=== PATIENT | female | born 1965 | race Caucasian/White ===

== ENCOUNTER 2018-10-04 18:17 | Emergency (ER) | payer SELFPAY ==
[~2018-10-04] VITALS: Ht 165.1 cm; Wt 66.0 kg
[2018-10-04 18:20] VITALS: BP 140/75
--- NOTE | 2018-10-04 18:26 | NUR ---
PT AMBULATED TO BED 02.
--- NOTE | 2018-10-04 18:57 | NUR ---
PT HAS RT THIRD FINGER REDNESS AND SWELLING WITH SOME FLUID OOZING OUT FROM THE SITE. PAIN 4/10 , PAIN TO TOUCH, DENEIS MEDCALL HX. NO KNOWN ALLERGIES. ER MD TO SEE THE PT.
--- NOTE | 2018-10-04 19:06 | NUR ---
bedside report given to pm rn. pt stable .
--- NOTE | 2018-10-04 19:07 | NUR ---
REPORT RECEIVED FROM MELA JURADO. TRANSFER OF CARE AT THIS TIME.
== END 2018-10-04 19:30 | disposition home or self-care (01) ==
LOC: MED 18:17
DX: L03.012 Cellulitis of left finger (principal)
CPT/HCPCS: 99283

== ENCOUNTER 2021-09-06 20:44 | Emergency (ER) | payer MEDICAID ==
[~2021-09-06] VITALS: Ht 162.6 cm; Wt 67.1 kg
--- NOTE | 2021-09-06 21:34 | NUR ---
PT TAKEN TO CHAIR A
--- NOTE | 2021-09-06 21:36 | NUR ---
DR. SILVA EVALUATING PT
[2021-09-06 21:48] VITALS: BP_SYST 128; BP_SYST 159; BP_DIAS 83; BP_DIAS 89
[2021-09-06] MEDS ORDERED: LIDOCAINE MPF 1% 10 MG/ML VIAL INJ ONE (22:25)
--- NOTE | 2021-09-06 22:26 | NUR ---
PT MOVED TO BED #8
[2021-09-06 22:27] VITALS: BP 159/89
[2021-09-06] MEDS ORDERED: IBUPROFEN 800 MG TAB PO ONE (22:30)
[2021-09-06] MEDS ORDERED: SULFAMETH/TRIMETH DS 800/160MG 1 TAB PO ONE (22:30)
--- NOTE | 2021-09-06 23:26 | NUR ---
Patient discharged with v/s stable. Written and verbal after care instructions given and explained. Patient verbalized understanding. Ambulatory with steady gait. All questions addressed prior to discharge. Advised to follow up with PMD.
== END 2021-09-06 23:26 | disposition home or self-care (01) ==
LOC: MED 20:44
DX: S62.623B Displaced fracture of middle phalanx of left middle finger, initial encounter for open fracture (principal); E11.9 Type 2 diabetes mellitus without complications; Z79.4 Long term (current) use of insulin; Z79.899 Other long term (current) drug therapy; X58.XXXA Exposure to other specified factors, initial encounter; Y93.89 Activity, other specified; Y92.89 Other specified places as the place of occurrence of the external cause; Y99.8 Other external cause status
CPT/HCPCS: 73140; 90471; 90715; 99283; J2001

== ENCOUNTER 2021-12-23 16:20 | Emergency (ER) | payer MEDICAID ==
[~2021-12-23] VITALS: Ht 165.1 cm; Wt 65.8 kg
[2021-12-23 16:25] VITALS: BP 151/88
[2021-12-23] MEDS ORDERED: KETOROLAC 30 MG/ML VIAL IM ONE (16:35)
--- NOTE | 2021-12-23 16:51 | NUR ---
56/F WALKED IN C/O LEFT KNEE PAIN ONSET 1 WK. DENIES FALL OR INJURY. PT STATES NOTICING SWELLING THAT GOT WORSE WITH PAIN OVER THE COURSE OF 1 WK. AAO4, AMBULATORY, VITALS STABLE. PMH: DENIES
[2021-12-23 16:52] VITALS: BP 147/73
--- NOTE | 2021-12-23 17:06 | NUR ---
XR AT BEDSIDE
[2021-12-23] MEDS ORDERED: NAPR-1704 PO (18:06)
[2021-12-23] MEDS ORDERED: DICL100G31 TP (18:06)
== END 2021-12-23 18:15 | disposition home or self-care (01) ==
LOC: MED 16:20
DX: M17.12 Unilateral primary osteoarthritis, left knee (principal); E11.9 Type 2 diabetes mellitus without complications; Z79.899 Other long term (current) drug therapy
CPT/HCPCS: 73562; 96372; 99283; J1885

== ENCOUNTER 2022-08-20 23:00 | Emergency (ER) | payer BC, MEDICAID ==
[~2022-08-20] VITALS: Ht 165.1 cm; Wt 63.5 kg
[~2022-08-20 23:00] MED LIST: DICL100G31 TP; NAPR-1704 PO
[2022-08-20 23:11] VITALS: BP 120/73
--- NOTE | 2022-08-20 23:15 | NUR ---
PT AMBULATES TO BED 5
--- NOTE | 2022-08-20 23:38 | NUR ---
DR SEALS AT BEDSIDE
--- NOTE | 2022-08-20 23:38 | NUR ---
57YR OLD FEMALE BIB FAMILY C/O HIVES TO BODY . PT HAD CATFISH LAST NIGHT, THIS AM NOTICED HIVES DENIES SOB OR CP. PT UNAWARE OF ANY ALLERGIES TO FOOD OR MEDS. DENIES ANY PAIN. FAMILY AT BEDSIDE PT THAI SPEAKING ONLY NKDA HTN MELISA CHOL DM
[2022-08-20] MEDS ORDERED: predniSONE 20 MG TAB PO ONE (23:45)
[2022-08-20] MEDS ORDERED: PRED20TA5 PO (23:46)
[2022-08-20] MEDS ORDERED: DIPH25TA53 PO (23:46)
--- NOTE | 2022-08-21 00:15 | NUR ---
Patient discharged with v/s stable. Written and verbal after care instructions given and explained. Patient alert, oriented and verbalized understanding of instructions. Ambulatory with steady gait. All questions addressed prior to discharge. ID band removed. Patient advised to follow up with PMD. Rx of BENADRYL, DELTASONE given. Patient educated on indication of medication including possible reaction and side effects. Opportunity to ask questions provided and answered.
== END 2022-08-21 00:15 | disposition home or self-care (01) ==
LOC: MED 23:00
DX: T78.40XA Allergy, unspecified, initial encounter (principal); R21 Rash and other nonspecific skin eruption; X58.XXXA Exposure to other specified factors, initial encounter; Y93.89 Activity, other specified; Y92.89 Other specified places as the place of occurrence of the external cause; Y99.8 Other external cause status
CPT/HCPCS: 99283; J7512; Q0163